=== PATIENT | female | born 1955 | race Caucasian/White ===

== ENCOUNTER → 2020-12-10 | Outpatient (CLI) | payer MEDICARE, OTHER ==
[2020-12-10 18:30] LABS: HEMOGLOBIN 13.5 g/dL (11.5-16.0); MEAN PLATELET VOLUME 11.1 fL (9.0-12.2); WHITE BLOOD COUNT 8.3 10^3/uL (4.3-11.0)
[2020-12-10 18:52] LABS: ALBUMIN 4.2 GM/DL (3.2-4.5); BILIRUBIN,TOTAL 0.2 MG/DL (0.1-1.0); CALCIUM 8.9 MG/DL (8.5-10.1); CREATININE SERUM 0.95 MG/DL (0.60-1.30); PHOSPHORUS 3.3 MG/DL (2.3-4.7); POTASSIUM 4.2 MMOL/L (3.6-5.0); TOTAL PROTEIN 6.9 GM/DL (6.4-8.2); URIC ACID 1.9 MG/DL (2.6-7.2)
== END ==
LOC: LAB 17:33
PROVIDERS: ATTEND Nurse Practitioner Family
DX: M79.642 Pain in left hand (principal); M25.40 Effusion, unspecified joint; N18.9 Chronic kidney disease, unspecified; M10.9 Gout, unspecified; I49.9 Cardiac arrhythmia, unspecified; R60.9 Edema, unspecified
CPT/HCPCS: 36415; 80053; 82330; 82533; 83516; 83520; 83735; 83970; 84100; 84550; 85027; 85652; 86038; 86060; 86141; 86200; 86225; 86235; 86255; 86431; 86618; 86666; 86668; 86757